=== PATIENT | female | born 1985 | race Two or more races ===

== ENCOUNTER 2022-10-23 16:28 | Inpatient (IN) | payer BC, OTHER ==
[~2022-10-23] VITALS: Ht 180.3 cm; Wt 90.0 kg
[2022-10-23 18:24] LABS: Urine Bacteria FEW /hpf (None Seen); Urine Blood Negative /uL (Negative); Urine Specific Gravity 1.011 (1.001-1.035); Urine WBC 59 /hpf (0 - 5)
[2022-10-23] MEDS ORDERED: cefTRIAXone 1GM/50ML D5W 50 ML IV ONE (19:00)
[2022-10-23] MEDS ORDERED: MORPHINE SULFATE 4 MG/ML SYR/VIAL IV ONE (19:00)
[2022-10-23] MEDS ORDERED: ONDANSETRON HCL 4 MG/2 ML VIAL IV ONE ×2 (19:00→22:30)
[2022-10-23 19:26] LABS: Basophils % (auto) 0.3 % (0.0-2.0); Eosinophils # (auto) 0 10 ^3/uL (0-0.8); Hemoglobin 12.5 g/dL (12.2-16.2); Mean Corpuscular Hgb Conc. 32.5 g/dL (32.0-36.0); Neutrophils % (auto) 82.1 % (37.0-80.0)
[2022-10-23 19:27] LABS: Basophils # (auto) 0.1 10 ^3/uL (0-0.2); Hematocrit 38.5 % (36.0-46.0); Lymphocytes % (auto) 11.1 % (10.0-50.0); Mean Corpuscular Hemoglobin 23.7 pg (28.0-32.0); Mean Corpuscular Volume 73.1 fL (80.0-100.0); Monocytes # (auto) 1.2 10 ^3/uL (0-1.3); Monocytes % (auto) 6.5 % (0.0-12.0); Neutrophils # (auto) 14.9 10 ^3/uL (1.6-8.6); Red Blood Cells 5.27 10^6/uL (4.0-5.20); Red Cell Distribution Width 17.5 % (11.8-14.3); White Blood Cell 18.2 10^3/uL (4.4-10.8)
[2022-10-23 19:39] LABS: Albumin 3.4 g/dL (3.4-5.0); Calcium 8.8 mg/dL (8.5-10.1)
[2022-10-23 19:42] LABS: BUN/Creatinine Ratio 7.9 (10.0-20.0); Bilirubin, Total 0.8 mg/dL (0.2-1.0); Total Protein 7.8 g/dL (6.4-8.2)
[2022-10-23] MEDS ORDERED: SODIUM CHLORIDE 0.9% 1,000 ML IV ONE (20:30)
[2022-10-23] MEDS ORDERED: KETOROLAC TROMETH 30 MG/ML 1ML VIAL IV ONE (21:00)
[2022-10-23] MEDS ORDERED: LIDOCAINE VISCOUS 2% 15ML UD PO ONE (21:30)
[2022-10-23] MEDS ORDERED: MAALOX PLUS or MAALOX 30 ML PO ONE (21:30)
[2022-10-23] MEDS ORDERED: HYDROmorphone HCL 2 MG/ML VL/or syr IV ONE (22:30)
[2022-10-23] MEDS ORDERED: CEFEPIME 1GM/ 50ML 50 ML IV ONE (23:15)
[2022-10-23] MEDS ORDERED: POTASSIUM EFFERVESENT TAB 25 MEQ PO ONE (23:15)
[2022-10-23] MEDS ORDERED: metroNIDAZOLE 500MG/100ML 100 ML IV ONE (23:15)
[2022-10-23 23:28] LABS: Cholesterol 110 mg/dL (< 200)
[2022-10-23] MEDS: SODIUM CHLORIDE 0.9% 1,000 ML IV SCH (23:28)
[2022-10-23 23:31] LABS: HDL Cholesterol 55 mg/dL (40-59); LDL Cholesterol 55 mg/dL (< 100); Triglycerides 54 mg/dL (< 150)
[2022-10-23 23:58] LABS: Alcohol, Urine < 3.0 mg/dL (0-10); Amphetamine Screen, Urine NEGATIVE (NEGATIVE); Barbiturate Scree,Urine NEGATIVE (NEGATIVE); Benzodiazephine Screen, Urine NEGATIVE (NEGATIVE); Cannabinoid Screen, Urine POSITIVE (NEGATIVE); Cocaine Screen, Urine NEGATIVE (NEGATIVE); Opiate Scree,Urine NEGATIVE (NEGATIVE); Phencyclidine Screen, Urine NEGATIVE (NEGATIVE)
[2022-10-24] MEDS: ONDANSETRON HCL 4 MG/2 ML VIAL IV PRN ×3 (02:27→21:28)
[2022-10-24] MEDS: MORPHINE SULFATE INJ 2 MG/ml SYRG IV PRN ×2 (02:27→14:41)
[2022-10-24] MEDS ORDERED: METOCLOPRAMIDE HCL 5MG/ml INJ 2ml VIAL IV ONE (05:45)
[2022-10-24] MEDS ORDERED: metroNIDAZOLE 500MG/100ML 100 ML IV SCH (06:00)
[2022-10-24 06:07] LABS: Basophils # (auto) 0 10 ^3/uL (0-0.2); Eosinophils # (auto) 0 10 ^3/uL (0-0.8); Monocytes # (auto) 1.3 10 ^3/uL (0-1.3)
[2022-10-24 06:09] LABS: Basophils % (auto) 0.1 % (0.0-2.0); Hematocrit 35.7 % (36.0-46.0); Hemoglobin 11.6 g/dL (12.2-16.2); Lymphocytes # (auto) 1.3 10 ^3/uL (0.4-5.4); Lymphocytes % (auto) 7.1 % (10.0-50.0); Mean Corpuscular Hemoglobin 24.4 pg (28.0-32.0); Mean Corpuscular Hgb Conc. 32.5 g/dL (32.0-36.0); Monocytes % (auto) 7.5 % (0.0-12.0); Neutrophils # (auto) 15.1 10 ^3/uL (1.6-8.6); Neutrophils % (auto) 85.3 % (37.0-80.0); Red Blood Cells 4.76 10^6/uL (4.0-5.20); Red Cell Distribution Width 17.9 % (11.8-14.3); White Blood Cell 17.7 10^3/uL (4.4-10.8)
[2022-10-24 06:27] LABS: Albumin 2.8 g/dL (3.4-5.0); Calcium 7.8 mg/dL (8.5-10.1); Potassium 3.8 mmol/L (3.5-5.1)
[2022-10-24 06:29] LABS: BUN/Creatinine Ratio 8.1 (10.0-20.0); Bilirubin, Total 0.5 mg/dL (0.2-1.0); Total Protein 6.9 g/dL (6.4-8.2)
[2022-10-24] MEDS: ACETAMINOPHEN 325 MG TAB PO PRN (08:36)
[2022-10-24] MEDS: SODIUM CHLORIDE 0.9% 1,000 ML IV SCH (08:49)
[2022-10-24] MEDS ORDERED: CEFEPIME 1GM/ 50ML 50 ML IV SCH (10:00)
[2022-10-24] MEDS: ENOXAPARIN SOD 40 MG/0.4 ML SYRINGE SC SCH (10:48)
[2022-10-24] MEDS: HYDROcodone-ACET 5/325MG TAB PO PRN ×3 (13:05→22:18)
[2022-10-24] MEDS: SOD CHL 0.45% 1,000 ML IV SCH (14:13)
[2022-10-24 16:52] VITALS: BP 124/79
[2022-10-24] MEDS: PIPERACILLIN-TAZOB 3.375GM 100 ML IV SCH (18:00)
[2022-10-24 22:00] VITALS: BP 125/75
[2022-10-25 05:00] VITALS: BP 118/68
[2022-10-25 05:24] LABS: Eosinophils # (auto) 0 10 ^3/uL (0-0.8); Monocytes # (auto) 0.8 10 ^3/uL (0-1.3); Monocytes % (auto) 6.8 % (0.0-12.0); Red Blood Cells 4.57 10^6/uL (4.0-5.20); White Blood Cell 11.4 10^3/uL (4.4-10.8)
[2022-10-25 05:26] LABS: Basophils # (auto) 0.1 10 ^3/uL (0-0.2); Basophils % (auto) 0.5 % (0.0-2.0); Eosinophils % (auto) 0.1 % (0.0-7.0); Hematocrit 33.9 % (36.0-46.0); Hemoglobin 10.9 g/dL (12.2-16.2); Lymphocytes # (auto) 1.9 10 ^3/uL (0.4-5.4); Lymphocytes % (auto) 16.4 % (10.0-50.0); Mean Corpuscular Hemoglobin 23.8 pg (28.0-32.0); Mean Corpuscular Volume 74.3 fL (80.0-100.0); Neutrophils # (auto) 8.7 10 ^3/uL (1.6-8.6); Neutrophils % (auto) 76.2 % (37.0-80.0); Red Cell Distribution Width 17.6 % (11.8-14.3)
[2022-10-25] MEDS: PIPERACILLIN-TAZOB 3.375GM 100 ML IV SCH ×4 (05:32→17:44)
[2022-10-25 05:37] LABS: Potassium 3.8 mmol/L (3.5-5.1)
[2022-10-25 05:39] LABS: BUN/Creatinine Ratio 8.5 (10.0-20.0)
[2022-10-25] MEDS: SOD CHL 0.45% 1,000 ML IV SCH ×3 (05:49→17:45)
[2022-10-25 08:10] VITALS: BP 114/75
[2022-10-25] MEDS: ONDANSETRON HCL 4 MG/2 ML VIAL IV PRN (09:05)
[2022-10-25] MEDS: ENOXAPARIN SOD 40 MG/0.4 ML SYRINGE SC SCH (09:05)
[2022-10-25] MEDS: MORPHINE SULFATE INJ 2 MG/ml SYRG IV PRN (09:06)
[2022-10-25 12:10] VITALS: BP 124/70
[2022-10-25] MEDS: ACETAMINOPHEN 325 MG TAB PO PRN (16:10)
[2022-10-25 16:15] VITALS: BP 129/78
[2022-10-25 22:00] VITALS: BP 146/93
[2022-10-26 05:00] VITALS: BP 121/74
[2022-10-26] MEDS: SOD CHL 0.45% 1,000 ML IV SCH (05:22)
[2022-10-26] MEDS: PIPERACILLIN-TAZOB 3.375GM 100 ML IV SCH ×3 (05:42→12:29)
[2022-10-26 06:32] LABS: Basophils # (auto) 0 10 ^3/uL (0-0.2); Basophils % (auto) 0.6 % (0.0-2.0); Eosinophils # (auto) 0 10 ^3/uL (0-0.8); Eosinophils % (auto) 0.3 % (0.0-7.0); Hematocrit 33.1 % (36.0-46.0); Lymphocytes # (auto) 1.3 10 ^3/uL (0.4-5.4); Monocytes # (auto) 0.5 10 ^3/uL (0-1.3); White Blood Cell 7.8 10^3/uL (4.4-10.8)
[2022-10-26 06:35] LABS: Hemoglobin 10.9 g/dL (12.2-16.2); Lymphocytes % (auto) 16.2 % (10.0-50.0); Mean Corpuscular Hemoglobin 24.2 pg (28.0-32.0); Mean Corpuscular Hgb Conc. 33.1 g/dL (32.0-36.0); Neutrophils # (auto) 5.9 10 ^3/uL (1.6-8.6); Neutrophils % (auto) 75.9 % (37.0-80.0); Red Blood Cells 4.53 10^6/uL (4.0-5.20); Red Cell Distribution Width 16.9 % (11.8-14.3)
[2022-10-26 07:05] LABS: BUN/Creatinine Ratio 8.6 (10.0-20.0); Calcium 8.2 mg/dL (8.5-10.1); Potassium 3.5 mmol/L (3.5-5.1)
[2022-10-26] MEDS: ONDANSETRON HCL 4 MG/2 ML VIAL IV PRN ×3 (07:40→22:30)
[2022-10-26 08:49] VITALS: BP 126/91
[2022-10-26] MEDS: ENOXAPARIN SOD 40 MG/0.4 ML SYRINGE SC SCH (09:31)
[2022-10-26 12:59] VITALS: BP 131/90
[2022-10-26] MEDS ORDERED: D5W/SOD CHLO 0.9% 1,000 ML IV SCH (13:00)
[2022-10-26] MEDS ORDERED: cefTRIAXone 1GM/50ML D5W 50 ML IV ONE (13:00)
[2022-10-26] MEDS: SODIUM CHLORIDE 0.9% 1,000 ML IV SCH ×2 (14:15→21:45)
[2022-10-26 17:00] VITALS: BP 151/93
[2022-10-26] MEDS: MORPHINE SULFATE INJ 2 MG/ml SYRG IV PRN (19:03)
[2022-10-26 22:00] VITALS: BP 142/90
[2022-10-26] MEDS: HYDROcodone-ACET 5/325MG TAB PO PRN (22:23)
[2022-10-27] MEDS: MORPHINE SULFATE INJ 2 MG/ml SYRG IV PRN (03:58)
[2022-10-27 05:00] VITALS: BP 136/82
[2022-10-27] MEDS: ONDANSETRON HCL 4 MG/2 ML VIAL IV PRN ×2 (05:13→11:44)
[2022-10-27] MEDS: HYDROcodone-ACET 5/325MG TAB PO PRN (05:13)
[2022-10-27] MEDS: SODIUM CHLORIDE 0.9% 1,000 ML IV SCH (05:13)
[2022-10-27 08:20] VITALS: BP 145/93
[2022-10-27 09:00] VITALS: BP 145/94
[2022-10-27] MEDS ORDERED: cefTRIAXone 1GM/50ML D5W 50 ML IV SCH (09:00)
[2022-10-27] MEDS: ENOXAPARIN SOD 40 MG/0.4 ML SYRINGE SC SCH (09:13)
[2022-10-27] MEDS ORDERED: ONDA-144 PO (12:00)
[2022-10-27 12:30] VITALS: BP 145/98
[2022-10-27 13:00] VITALS: BP 149/98
== END 2022-10-27 13:15 | disposition home or self-care (01) | DRG 871 ==
LOC: ER 16:28 → EDBD 16:28 → OVERFLOW 23:17 → EAST 10-24 14:29
PROVIDERS: ADMIT Registered Nurse; ATTEND Nurse Practitioner Acute Care
DX: A41.9 Sepsis, unspecified organism (principal); N17.0 Acute kidney failure with tubular necrosis; N12 Tubulo-interstitial nephritis, not specified as acute or chronic; Q61.3 Polycystic kidney, unspecified; E66.01 Morbid (severe) obesity due to excess calories; E86.0 Dehydration; Z68.27 Body mass index [BMI] 27.0-27.9, adult; Z20.822 Contact with and (suspected) exposure to COVID-19
CPT/HCPCS: 36415; 74176; 76775; 76830; 76856; 80048; 80053; 80061; 80307; 81001; 81025; 83036; 83605; 83690; 83735; 84443; 85025; 87040; 87086; 87426; 96361; 96365; 96366; 96367; 96375; 96376; G0378; J0696; J1885; J2405; J2543; J3490

== ENCOUNTER 2025-03-26 23:15 | Inpatient (IN) | payer BC ==
[~2025-03-26] VITALS: Ht 180.3 cm; Wt 135.8 kg
[~2025-03-26 23:15] MED LIST: ONDA-144 PO
[2025-03-26] MEDS: KETOROLAC TROMETH 60MG/2ML VIAL IM ONE (23:51)
[2025-03-26 23:59] LABS: Hematocrit 40.7 % (36.0-46.0); Hemoglobin 13.5 g/dL (12.2-16.2); Mean Corpuscular Hemoglobin 26.4 pg (28.0-32.0); Mean Corpuscular Volume 79.4 fL (80.0-100.0); Nucleated Red Blood Cells % 0.0 %
--- NOTE | 2025-03-26 23:59 | ED.PDOC ---
GI ASSESSMENT HPI Comments 39-year-old female who came to ER for abdominal pains. Patient states she has been having intermittent abdominal pain past 2 days, at the lower and left lower quadrant areas. Denies any nausea or vomiting, denies any urinary symptoms, states she is constipated. Chief Complaint: Abdominal Pain Time Seen by MD: 23:59 Reviewed Notes: Nurses Notes Allergies: Coded Allergies: NO KNOWN ALLERGIES (Unverified , 10/23/22) Home Meds Active Scripts Ondansetron (Zofran) 4 Mg Tab, 1 TAB PO Q6HR, #20 TAB Prov:TANESHA BROWN MD 10/27/22 Information Source: Patient Mode of Arrival: Ambulatory Timing: Days Duration: Intermittent Quality: Aching Past Medical History PAST MEDICAL HISTORY: CKF, UTI'S, Denies Surgical History: Denies all surgeries TELERADIOLOGIST History: Denies all TELERADIOLOGIST Hx Family History Family History: Reviewed,noncontributory to illness, No family hx of Cancer, No family hx of DM, No family hx of Heart niru, No family hx of HTN, No family hx ofKidney niru, No family hx of Liver niru, No family hx of Lung niru, No family hx of Stroke Social History Smoker: Non-Smoker Alcohol: Denies ETOH Use Drugs: Denies Drug Use Lives In: Home Constitutional: denies: chills, diaphoresis, fatigue, fever, malaise, sweats, weakness, others EENTM: denies: blurred vision, double vision, ear bleeding, ear discharge, ear drainage, ear pain, ear ringing, eye pain, eye redness, hearing loss, mouth pain, mouth swelling, nasal discharge, nose bleeding, nose congestion, nose pain, photophobia, tearing, throat pain, throat swelling, voice changes, others Respiratory: denies: cough, hemoptysis, orthopnea, SOB at rest, shortness of breath, SOB with excertion, stridor, wheezing, others Cardiovascular: denies: chest pain, dizzy spells, diaphoresis, Dyspnea on exertion, edema, irregular heart beat, left arm pain, lightheadedness, palpitations, PND, syncope, others Gastrointestinal: reports: abdominal pain, constipated; denies: abdomen distended, blood streaked bowels, diarrhea, dysphagia, difficulty swallowing, hematemesis, melena, nausea, poor appetite, poor fluid intake, rectal bleeding, rectal pain, vomiting, others Genitourinary: denies: abnormal vagina bleeding, burning, dyspareunia, dysuria, flank pain, frequency, hematuria, incontinence, pain, , vagina discharge, urgency, others Neurological: denies: dizziness, fainting, headache, left sided numbness, left sided weakness, numbness, paresthesia, pre-existing deficit, right sided numbness, right sided weakness, seizure, speech problems, tingling, tremors, weakness, others Musculoskeletal: denies: back pain, gout, joint pain, joint swelling, muscle pain, muscle stiffness, neck pain, others Integumetry: denies: bruises, change in color, change in hair/nails, dryness, laceration, lesions, lumps, rash, wounds, others Allergic/Immunocompromised: denies: Difficulty Healing, Frequent Infections, Hives, Itching, others Hematologic/Lymphatic: denies: anemia, blood clots, easy bleeding, easy bruising, swollen glands, others Endocrine: denies: excessive hunger, excessive sweating, excessive thirst, excessive urination, flushing, intolerance to cold, intolerance to heat, unexplained weight gain, unexplained weight loss, others Psychiatric: denies: anxiety, bipolar disorder, depression, hopeless, panic disorder, schizophrenia, sleepless, suicidal, others Physical Exam General Appearance: No Apparent Distress, Normal HEENT: Normal ENT Inspection, Pharynx Normal, TMs Normal Neck: Full Range of Motion, Non-Tender, Normal, Normal Inspection Respiratory: Chest Non-Tender, Lungs Clear, No Accessory Muscle Use, No Respiratory Distress, Normal Breath Sounds Cardiovascular: No Edema, No JVD, No Murmur, No Gallop, Normal Peripheral Pulses, Regular Rate/Rhythm Breast Exam: Deferred Gastrointestinal: No Organomegaly, Non Tender, No Pulsatile Mass, Normal Bowel Sounds, Soft Genitalia: Deferred Pelvic: Deferred Rectal: Deferred Extremities: No calf tenderness, Normal capillary refill, Normal inspection, Normal range of motion, Non-tender, No pedal edema Musculoskeletal : Apperance: Normal Neurologic: Alert, strip stamp straightener II-XII nml as Tested, No Motor Deficits, Normal Affect, Normal Mood, No Sensory Deficits Cerebellar Function: Normal Reflexes: Normal Skin: Dry, Normal Color, Warm Lymphatic: No Adenopathy Was a procedure done? Was a procedure done?: No GI differential Dx Differential Diagnosis: Constipation, Diverticular disease, Gastritis/PUD, Gastroenteritis, Pancreatitis, UTI, Urolithiasis X-Ray, Labs, Meds, VS Vital Signs Date Time Temp Pulse Resp B/P (MAP) Pulse Ox O2 Delivery O2 Flow Rate FiO2 03/26/25 23:17 100.1 121 20 153/117 93 100.1 Lab Test 03/27/25 01:45 03/26/25 23:33 Range/Units Urine Color Pending Urine Clarity Pending Urine pH Pending Urine Specific [place] Pending Urine Protein Pending Urine Ketones Pending Urine Blood Pending Urine Nitrite Pending Urine Bilirubin Pending Urine Urobilinogen Pending Urine Leukocyte Esterase Pending Urine RBC Pending Urine Microscopic WBC Pending Urine Squamous Epithelial Cells Pending Urine Bacteria Pending Urine Glucose Pending Urine Test Pending White Blood Count 18.6 H 4.4-10.8 10^3/uL Red Blood Count 5.13 4.0-5.20 10^6/uL Hemoglobin 13.5 12.2-16.2 g/dL Hematocrit 40.7 36.0-46.0 % Mean Corpuscular Volume 79.4 L 80.0-100.0 fL Mean Corpuscular Hemoglobin 26.4 L 28.0-32.0 pg Mean Corpuscular Hemoglobin Concent 33.3 32.0-36.0 g/dL Red Cell Distribution Width 14.9 H 11.8-14.3 % Platelet Count 254 140-450 10^3/uL Mean Platelet Volume 9.2 6.9-10.8 fL Neutrophils (%) (Auto) 82.8 H 37.0-80.0 % Lymphocytes (%) (Auto) 9.3 L 10.0-50.0 % Monocytes (%) (Auto) 7.5 0.0-12.0 % Eosinophils (%) (Auto) 0.0 0.0-7.0 % Basophils (%) (Auto) 0.4 0.0-2.0 % Neutrophils # (Auto) 15.4 H 1.6-8.6 10 ^3/uL Lymphocytes # (Auto) 1.7 0.4-5.4 10 ^3/uL Monocytes # (Auto) 1.4 H 0-1.3 10 ^3/uL Eosinophils # (Auto) 0 0-0.8 10 ^3/uL Basophils # (Auto) 0.1 0-0.2 10 ^3/uL Nucleated Red Blood Cells 0.0 % Sodium Level 139 136-145 mmol/L Potassium Level 3.2 L 3.5-5.1 mmol/L Chloride Level 103 98-107 mmol/L Carbon Dioxide Level 25 20-31 mmol/L Anion Gap 11 5-15 Blood Urea Nitrogen 14 9-23 mg/dL Creatinine 2.30 H 0.550-1.02 mg/dL Glomerular Filtration Rate Calc 27 >90 mL/min BUN/Creatinine Ratio 6.1 L 10.0-20.0 Serum Glucose 119 H 74-106 mg/dL Calcium Level 9.1 8.7-10.4 mg/dL Current Medications Medications (Trade) Dose Ordered Sig/Clarissa Route Start Time Stop Time Status Last Admin Ketorolac Tromethamine (Toradol Injection) 60 mg ONCE ONCE IM 03/26/25 23:30 03/26/25 23:31 DC 03/26/25 23:51 Time of 1ST Reevaluation: 23:57 Reevaluation 1ST: Unchanged Patient Education/Counseling: Diagnosis, Treatment Family Education/Counseling: Diagnosis, Treatment Comments Patient presents with flank pain. She has pyelonephritis. She also meets sepsis criteria. The WBC came back at after 07 03. Sepsis was recognized after this and sepsis order was initiated. SEPSIS Sepsis Screen Date sepsis recognized/suspect: Mar 26, 2025 Time Sepsis recognized/suspect: 2321 Recent Procedure: No On Antibiotic Therapy: No Respiratory Rate >20: No Heart Rate >90: No Temp<36 C (96.8 F) or >38.3 C: No SBP <90 or MAP <65 mmHG: No New Acute Mental Status Change: No Is the patient on CPAP, BIPAP,: No Physician Orders Ct Ab Pel Wo Con-No Oral Or Iv (03/26/25 23:51) Test, Urine (03/26/25 23:51) Urinalysis (03/26/25 23:51) Complete Blood Count (03/27/25 02:13) Comprehensive Metabolic Panel (03/27/25 02:13) PTPTT (03/27/25 02:13) Urinalysis (03/27/25 02:13) Chest Portable (03/27/25 02:13) Accucheck (03/27/25 02:13) Lactated Ringer's (03/27/25 02:15) Blood Culture (03/27/25 02:13) Lactic Acid W/ Reflex Order (03/27/25 04:00) Lactic Acid W/ Reflex Order (03/27/25 06:00) Cefepime 1gm/ 50ml (Maxipime 1gm/50ml) (03/27/25 06:00) Notify Md If Map <65 Or Bp<90 (03/27/25 02:13) If Map<65 Start Vasopressor (03/27/25 02:13) Sepsis Reassesment After Fluid (03/27/25 03:13) Vital Signs Date Time Temp Pulse Resp B/P (MAP) Pulse Ox O2 Delivery O2 Flow Rate FiO2 03/26/25 23:17 100.1 121 20 153/117 93 100.1 Laboratory Tests Test 03/26/25 23:33 White Blood Count 18.6 10^3/uL (4.4-10.8) H Medications Medications Dose Ordered Sig/Clarissa Route Start Time Stop Time Status Last Admin Dose Admin Ketorolac Tromethamine 60 mg ONCE ONCE IM 03/26/25 23:30 03/26/25 23:31 DC 03/26/25 23:51 Reassessment Post Fluid SEPSIS FOCUS EXAM(REASSESSMENT pt appears in no distress. resting comfortably Date of Reassessment: Mar 27, 2025 Time of Reassessment: 02:18 Departure 1 Departure Time of Disposition: 02:21 Impression: Primary Impression: Pyelonephritis Additional Impressions: Renal failure Qualified Codes: N19 - Unspecified kidney failure Sepsis Disposition: ADMITTED INPATIENT Admit to: Med Surg Condition: Serious Discharged With: Self Critical Care Note Critical Care Time?: Yes (55 min-critical care time only) Critical care comment: Due to concerns for patients condition deteriorating, the care required my highest level of attention and readiness to intervene. I assessed the patient, reviewed the medical records, ordered the appropriate tests and treatments, then reassessed for results and responsiveness. I communicated with medical personnel and consultants and formulated a plan of care. Total critical care time excludes any procedures Stability Stability form required: No Heart Score Heart Score: Heart Score Response (Comments) Value History N/A 0 EKG N/A 0 Age N/A 0 Risk Factors N/A 0 Troponin N/A 0 Total 0 I personally scribed for MIKALA PRATT MD ([facility]) on 03/26/25 at 23:59. Electronically submitted by Mahesh Carrillo ([facility]). MIKALA PRATT MD Mar 26, 2025 23:59
[2025-03-27 00:09] LABS: Chloride 103 mmol/L (98-107); Sodium 139 mmol/L (136-145)
[2025-03-27 00:10] LABS: Anion Gap 11 (5-15); Calcium 9.1 mg/dL (8.7-10.4); Carbon Dioxide 25 mmol/L (20-31)
[2025-03-27 00:15] LABS: BUN/Creatinine Ratio 6.1 (10.0-20.0); Blood Urea Nitrogen 14 mg/dL (9-23)
[2025-03-27 00:16] LABS: Glucose 119 mg/dL (74-106); Potassium 3.2 mmol/L (3.5-5.1)
--- NOTE | 2025-03-27 01:51 | DVH ---
Exam: CT CT AB PEL WO CON-NO ORAL OR IV History: llq pain Comparison Study: US PELVIC on DOS: 10/24/22, CT CT AB PEL WO CON-NO ORAL OR IV on DOS: 10/23/22 TECHNIQUE: Multidetector CT of the abdomen and pelvis was performed from lung bases to pubic symphysi s. Imaging was performed without IV contrast. Axial, coronal, and sagittal multiplanar reformats were obtained from the axial data set by the technologist. RADIATION DOSE: CTDI vol 24.99 mGy. DLP 1674.64 mGy.cm Findings: Limited evaluation of the solid organs in the absence of IV contrast. Liver: Scattered hepatic cysts. Spleen: Unremarkable. Pancreas: Unremarkable. Gallbladder: Unremarkable. Adrenals: Unremarkable Kidneys: Enlarged kidneys with innumerable renal cysts, several which demonstrate hyperdensity. Ther e is left perinephric stranding. Pelvic Viscera: An intrauterine device is noted. Vasculature: Unremarkable. Retroperitoneum: Mildly enlarged retroperitoneal nodes measuring up to 12 mm short axis. Bowel: No bowel obstruction. Musculoskeletal: Unremarkable. Soft tissues: Small fat containing umbilical hernia. Lungs: The lung bases are clear. Impression: 1. Polycystic kidney disease with perinephric stranding about the left kidney, infectious/ inflammato ry process or blood products cannot be excluded. Further clinical correlation is suggested. 2. Additional findings as detailed.
[2025-03-27 02:26] LABS: Urine Protein, UAD 2+ (Negative)
--- NOTE | 2025-03-27 03:03 | DVH ---
CHEST RADIOGRAPH Indication: sepsis Technique: 1 view Comparison: None FINDINGS: Lines and Tubes: None Lungs: No focal consolidation. Pleura: No effusion or pneumothorax. Cardiomediastinal contours: Unremarkable. Other: No acute osseous abnormality. IMPRESSION: 1. No acute cardiopulmonary abnormality.
[2025-03-27] MEDS ORDERED: ACETAMINOPHEN 325 MG TAB PO PRN (03:15)
[2025-03-27] MEDS ORDERED: VANCOMYCIN PER PHARMACY 0 MG IV SCH (03:15)
[2025-03-27] MEDS ORDERED: DOCUSATE SOD 100 MG CAP PO PRN (03:15)
[2025-03-27 03:20] LABS: INR 1.14 (0.9-1.15); Partial Thromboplastin Time 35.4 SEC (24.5-34.5); Prothrombin Time 11.9 sec (9.3-11.8)
[2025-03-27] MEDS: POTASSIUM CHL 20 Meq TABLET PO ONE (04:37)
[2025-03-27] MEDS: VANCOMYCIN 1GM/250ML KIT 250 ML IV SCH (04:47)
[2025-03-27] MEDS: LACTATED RINGER'S 2,100 ML IV ONE (05:18)
[2025-03-27] MEDS: HYDROcodone-ACET 5/325MG TAB PO PRN (05:22)
--- NOTE | 2025-03-27 05:58 | DVHHP2 ---
History of Present Illness Reason for Visit: Pyelonephritis History of Present Illness The patient is a 39-year-old female with past medical history of chronic kidney failure and UTIs who presented to [facility] ED with complaint of abdominal pain. Patient reports she has been experiencing intermittent abdominal pain for the past 2 days, described pain as sharp in nature, radiating to left lower quadrant, rating 8/10 numeric scale, getting worse that prompted this visit. Patient was seen and evaluated in the ED, laboratory data shows WBC 18.6, platelets 254, sodium 139, potassium 3.2, BUN 14, creatinine 2.30, GFR 27, glucose 119, calcium 9.1, urinalysis positive for urinary tract infection, blood pressure 139/91, heart rate 90, temperature 97.6 F, O2 saturation 98% on room air. Abdomen/pelvis CT revealing polycystic kidney disease with perinephric stranding about the left kidney, infectious/inflammatory process blood product can not be excluded. Patient was started on IV antibiotic regimen cefepime, please see medication orders section in the computer. On my assessment, patient denied chest pain, no headache, no dizziness, no shortness of breaths, no diarrhea, no nausea, no vomiting, no fever, no chills. Patient was admitted for further evaluation and medical management. Past Medical History CKF, UTI'S Past Surgical History Denies all surgeries Family History Reviewed, noncontributory to the management of this case. Past Social History The patient lives at home, denies smoking, alcohol or illicit drugs abuse. Review of Systems Constitutional: Yes: Weakness; No: Fever, Chills, Sweats, Malaise, Other Eyes: No: Pain, Vision change, Conjunctivae inflammation, Eyelid inflammation, Other, Redness ENT: No: Ear pain, Ear discharge, Nose pain, Nose discharge, Nose congestion, Mouth pain, Mouth swelling, Throat pain, Throat swelling, Other Respiratory: No: Cough, Dry, Shortness of breath, SOB with excertion, Wheezing, Hemoptysis, Pleuritic Pain, Sputum, Wheezing, Other Cardiovascular: No: Chest Pain, Palpitations, Orthopnea, Paroxysmal Noc. Dyspnea, Edema, Lt Headedness, Other Gastrointestinal: Abdominal Pain, Constipation; No: Nausea, Vomiting, Diarrhea, Melena, Hematochezia, Other Genitourinary: No Dysuria, No Frequency, No Incontinence, No Hematuria, No Retention, No Other Musculoskeletal: No: other, neck pain, shoulder pain, arm pain, back pain, hand pain, leg pain, foot pain Skin: No: Rash, Lesions, Jaundice, Bruising, Other Neurological: No: Weakness, Numbness, Incoordination, Change in speech, Confusion, Seizures, Other Allergies: Coded Allergies: NO KNOWN ALLERGIES (Unverified , 10/23/22) Medications Current Medications Medications Dose Ordered Sig/Clarissa Route Start Time Stop Time Status Last Admin Dose Admin Cefepime HCl 50 ml @ 12.5 mls/hr Q8HR IV 03/27/25 06:00 Famotidine 20 mg Q12HR IV 03/27/25 10:00 Vancomycin HCl 0 ml @ 0 mls/hr UD IV 03/27/25 03:15 UNV Sodium Chloride 1,000 ml @ 60 mls/hr [id number] IV 03/27/25 03:15 Acetaminophen/ Hydrocodone Bitart 1 tab Q4HP PRN PO 03/27/25 03:15 03/27/25 05:22 1 TAB Ondansetron HCl 4 mg Q4HP PRN IV 03/27/25 03:15 Docusate Sodium 100 mg BIDPRN PRN PO 03/27/25 03:15 Acetaminophen 650 mg Q6HP PRN PO 03/27/25 03:15 Vancomycin HCl 250 ml @ 166.667 mls/hr Q2H IV 03/27/25 03:30 03/27/25 06:59 Exam Vital Signs Vital Signs Date Time Temp Pulse Resp B/P (MAP) Pulse Ox O2 Delivery O2 Flow Rate FiO2 03/27/25 03:05 97.7 90 20 139/91 (107) 98 97.7 General Appearance: Alert, Oriented X3, Cooperative, No acute distress HEENT: Atraumatic, PERRLA, EOMI, Mucous membr. moist/pink Respiratory: Clear to auscultation, Normal air movement Cardiovascular: Regular rate, Normal S1, Normal S2, No murmurs Abdominal: Normal bowel sounds, Soft, No tenderness, No hepatospenomegaly, No masses Extremities: No clubbing, No cyanosis, No edema, Normal pulses, No tenderness/swelling Skin: No rashes, No breakdown, No significant lesion Neuro: Normal speech, Normal tone, Sensation intact, Cranial nerves 3-12 NL, Reflexes 2+, Other (Generalized weakness) Psych/Mental Status: Mental status NL, Mood NL Labs/Xrays Labs Test 03/27/25 02:31 03/27/25 01:45 03/26/25 23:33 Range/Units Prothrombin Time 11.9 H 9.3-11.8 sec Prothrombin Time INR 1.14 0.9-1.15 Activated Partial Thromboplast Time 35.4 H 24.5-34.5 SEC Lactic Acid Level 0.9 0.4-2.0 mmol/L Urine Color Colorless Yellow Urine Clarity Turbid H Clear Urine pH 6.0 5.0-9.0 Urine Specific [place] 1.014 1.001-1.035 Urine Protein 2+ H Negative Urine Ketones Negative Negative Urine Blood 1+ H Negative /uL Urine Nitrite Negative Negative Urine Bilirubin Negative Negative Urine Urobilinogen Normal Negative mg/dL Urine Leukocyte Esterase 3+ Negative /uL Urine RBC 4 0 - 4 /hpf Urine Microscopic WBC 162 H 0-5 /HPF Urine Squamous Epithelial Cells Few <5 /hpf Urine Bacteria Few H None Seen /hpf Urine Glucose Normal Normal mg/dL Urine Test Negative Negative White Blood Count 18.6 H 4.4-10.8 10^3/uL Red Blood Count 5.13 4.0-5.20 10^6/uL Hemoglobin 13.5 12.2-16.2 g/dL Hematocrit 40.7 36.0-46.0 % Mean Corpuscular Volume 79.4 L 80.0-100.0 fL Mean Corpuscular Hemoglobin 26.4 L 28.0-32.0 pg Mean Corpuscular Hemoglobin Concent 33.3 32.0-36.0 g/dL Red Cell Distribution Width 14.9 H 11.8-14.3 % Platelet Count 254 140-450 10^3/uL Mean Platelet Volume 9.2 6.9-10.8 fL Neutrophils (%) (Auto) 82.8 H 37.0-80.0 % Lymphocytes (%) (Auto) 9.3 L 10.0-50.0 % Monocytes (%) (Auto) 7.5 0.0-12.0 % Eosinophils (%) (Auto) 0.0 0.0-7.0 % Basophils (%) (Auto) 0.4 0.0-2.0 % Neutrophils # (Auto) 15.4 H 1.6-8.6 10 ^3/uL Lymphocytes # (Auto) 1.7 0.4-5.4 10 ^3/uL Monocytes # (Auto) 1.4 H 0-1.3 10 ^3/uL Eosinophils # (Auto) 0 0-0.8 10 ^3/uL Basophils # (Auto) 0.1 0-0.2 10 ^3/uL Nucleated Red Blood Cells 0.0 % Sodium Level 139 136-145 mmol/L Potassium Level 3.2 L 3.5-5.1 mmol/L Chloride Level 103 98-107 mmol/L Carbon Dioxide Level 25 20-31 mmol/L Anion Gap 11 5-15 Blood Urea Nitrogen 14 9-23 mg/dL Creatinine 2.30 H 0.550-1.02 mg/dL Glomerular Filtration Rate Calc 27 >90 mL/min BUN/Creatinine Ratio 6.1 L 10.0-20.0 Serum Glucose 119 H 74-106 mg/dL Calcium Level 9.1 8.7-10.4 mg/dL PATIENT: KLEVER LEARY ACCT: [id number] UNIT: [id number] : 1985 LOC: ER ROOM / BED: / AGE / SEX: 39 / F ADM STATUS: REG ER SERVICE 7250 ORDERING PHYSICIAN: MIKALA PRATT MD PROCEDURE(s): ABPL - CT AB PEL WO CON-NO ORAL OR IV REASON: llq pain ORDER NUMBER(s): [id number], ACCESSION NUMBER(s): [id number] Exam: CT CT AB PEL WO CON-NO ORAL OR IV History: llq pain Comparison Study: US PELVIC on DOS: 10/24/22, CT CT AB PEL WO CON-NO ORAL OR IV on DOS: 10/23/22 TECHNIQUE: Multidetector CT of the abdomen and pelvis was performed from lung bases to pubic symphysis. Imaging was performed without IV contrast. Axial, coronal, and sagittal multiplanar reformats were obtained from the axial data set by the technologist. RADIATION DOSE: CTDI vol 24.99 mGy. DLP 1674.64 mGy.cm Findings: Limited evaluation of the solid organs in the absence of IV contrast. Liver: Scattered hepatic cysts. Spleen: Unremarkable. Pancreas: Unremarkable. Gallbladder: Unremarkable. Adrenals: Unremarkable Kidneys: Enlarged kidneys with innumerable renal cysts, several which demonstrate hyperdensity. There is left perinephric stranding. Pelvic Viscera: An intrauterine device is noted. Vasculature: Unremarkable. Retroperitoneum: Mildly enlarged retroperitoneal nodes measuring up to 12 mm short axis. Bowel: No bowel obstruction. Musculoskeletal: Unremarkable. Soft tissues: Small fat containing umbilical hernia. Lungs: The lung bases are clear. Impression: 1. Polycystic kidney disease with perinephric stranding about the left kidney, infectious/inflammatory process or blood products cannot be excluded. Further clinical correlation is suggested. 2. Additional findings as detailed. ORDERING PHYSICIAN: MIKALA PRATT MD PROCEDURE(s): CXRP - CHEST PORTABLE REASON: sepsis ORDER NUMBER(s): [id number], ACCESSION NUMBER(s): [id number] CHEST RADIOGRAPH Indication: sepsis Technique: 1 view Comparison: None FINDINGS: Lines and Tubes: None Lungs: No focal consolidation. Pleura: No effusion or pneumothorax. Cardiomediastinal contours: Unremarkable. Other: No acute osseous abnormality. IMPRESSION: 1. No acute cardiopulmonary abnormality. SEPSIS Sepsis Screen Date sepsis recognized/suspect: Mar 26, 2025 Time Sepsis recognized/suspect: 2321 Recent Procedure: No On Antibiotic Therapy: No Respiratory Rate >20: No Heart Rate >90: No Temp<36 C (96.8 F) or >38.3 C: No SBP <90 or MAP <65 mmHG: No New Acute Mental Status Change: No Is the patient on CPAP, BIPAP,: No Physician Orders Ct Ab Pel Wo Con-No Oral Or Iv (03/26/25 23:51) Urinalysis (03/27/25 02:13) Chest Portable (03/27/25 02:13) Accucheck (03/27/25 02:13) Blood Culture (03/27/25 02:13) Cefepime 1gm/ 50ml (Maxipime 1gm/50ml) (03/27/25 06:00) Notify Md If Map <65 Or Bp<90 (03/27/25 02:13) If Map<65 Start Vasopressor (03/27/25 02:13) Sepsis Reassesment After Fluid (03/27/25 03:13) Famotidine Injection (Pepcid Injection) (03/27/25 10:00) *Dr. Natalia Banegas -Da Trish (03/27/25 03:15) Urine Bacterial Culture (03/27/25 03:15) Vancomycin Per Pharmacy (03/27/25 03:15) Allergies (03/27/25 03:15) Code Status (03/27/25 03:15) Sodium Chloride 0.9% (03/27/25 03:15) Oxygen Per Hour (03/27/25 03:15) Hydrocodone-Acet 5/325mg Tab ([place] 5/32 (03/27/25 03:15) Ondansetron Hcl (Zofran) (03/27/25 03:15) Docusate Sodium Capsule (Colace Capsule) (03/27/25 03:15) Complete Blood Count (03/28/25 04:00) Comprehensive Metabolic Panel (03/28/25 04:00) Condition: Serious (03/27/25 03:15) Acetaminophen Tablet (Tylenol Tablet) (03/27/25 03:15) Clear Liq Diet (03/27/25 Breakfast) Bedrest With Bathroom Privileg (03/27/25 03:15) Sequential Compression Device (03/27/25 ) Vancomycin 1gm/250ml Kit (03/27/25 03:30) Vital Signs Date Time Temp Pulse Resp B/P (MAP) Pulse Ox O2 Delivery O2 Flow Rate FiO2 03/27/25 03:05 97.7 90 20 139/91 (107) 98 97.7 03/26/25 23:17 100.1 121 20 153/117 93 100.1 Laboratory Tests Test 03/26/25 23:33 03/27/25 02:31 White Blood Count 18.6 10^3/uL (4.4-10.8) H Lactic Acid Level 0.9 mmol/L (0.4-2.0) Medications Medications Dose Ordered Sig/Clarissa Route Start Time Stop Time Status Last Admin Dose Admin Acetaminophen/ Hydrocodone Bitart 1 tab Q4HP PRN PO 03/27/25 03:15 03/27/25 05:22 1 TAB Ketorolac Tromethamine 60 mg ONCE ONCE IM 03/26/25 23:30 03/26/25 23:31 DC 03/26/25 23:51 60 MG Lactated Ringer's 2,100 ml @ 2,100 mls/hr ONCE ONCE IV 03/27/25 02:15 03/27/25 03:14 DC 03/27/25 05:18 2,100 MLS/HR Potassium Chloride 40 meq ONCE ONCE PO 03/27/25 03:15 03/27/25 03:27 DC 03/27/25 04:37 40 MEQ Reassessment Post Fluid Date of Reassessment: Mar 27, 2025 Time of Reassessment: 02:18 Assessment/Plan Assessment/Plan Pyelonephritis Acute renal failure Unspecified kidney failure Urinary tract infection Leukocytosis, unspecified Generalized weakness Plan 1. Admit to telemetry unit 2. Breathing treatment 3. Pain control management 4. IV antibiotic management 5. Management of fluids and electrolytes 6. Consultation for Nephrology 7. Diagnostic test abdomen/pelvis CT 8. DVT prophylaxis-on SCDs 9. Repeat labs CBC, CMP in a.m. 10. Home medication reviewed and reconciled 11. Continue with current medical management 12. Treatment plan discussed with patient and RN. Patient verbalized understanding. Plan discussed with: Patient, Other (RN) My Orders Orders - TIMBO SELF DNP Procedure Category Date Status Time Famotidine Injection PHA 03/27/25 In Process (Pepcid Injection) 10:00 *Dr. Natalia Banegas -Da CONS 03/27/25 Transmitted Trish 03:15 Urine Bacterial TANGELA 03/27/25 Logged Culture 03:15 Vancomycin Per PHA 03/27/25 Pending Pharmacy 03:15 Allergies ROCKY 03/27/25 In Process 03:15 Code Status CODE 03/27/25 Transmitted 03:15 Sodium Chloride 0.9% PHA 03/27/25 In Process 03:15 Oxygen Per Hour RT 03/27/25 Transmitted 03:15 Hydrocodone-Acet PHA 03/27/25 In Process 5/325mg Tab ([place] 03:15 Ondansetron Hcl PHA 03/27/25 In Process (Zofran) 03:15 Docusate Sodium PHA 03/27/25 In Process Capsule (Colace 03:15 Complete Blood Count LAB 03/28/25 Verified 04:00 Comprehensive LAB 03/28/25 Verified Metabolic Panel 04:00 Condition: Serious ROCKY 03/27/25 In Process 03:15 Acetaminophen Tablet PHA 03/27/25 In Process (Tylenol Tablet) 03:15 Clear Liq Diet DIET 03/27/25 Transmitted Breakfast Bedrest With Bathroom ROCKY 03/27/25 In Process Privileg 03:15 Sequential ROCKY 03/27/25 In Process Compression Device Vancomycin 1gm/250ml PHA 03/27/25 In Process Kit 03:30 Problem List: (1) Pyelonephritis (2) Acute renal failure (3) Unspecified kidney failure (4) Urinary tract infection (5) Leukocytosis, unspecified (6) Generalized weakness Date of Service: Mar 27, 2025 Billing Provider: TIMBO SELF DNP Common Visit Codes: [id number] INP/OBS CARE (HIGH) TIMBO SELF DNP Mar 27, 2025 05:58
[2025-03-27] MEDS ORDERED: NITROGLYCERIN 0.4 MG SL TAB SL PRN (06:00)
[2025-03-27] MEDS: SODIUM CHLORIDE 0.9% 1,000 ML IV SCH (08:03)
[2025-03-27 08:08] VITALS: RESP 18; O2SAT 98
[2025-03-27] MEDS: ONDANSETRON HCL 4 MG/2 ML VIAL IV PRN (08:22)
[2025-03-27] MEDS: MORPHINE SULFATE INJ 2 MG/ml SYRG IV PRN ×3 (08:22→17:48)
[2025-03-27] MEDS: FAMOTIDINE (10MG/ML) 2ML VL IV SCH (10:11)
[2025-03-27] MEDS: CEFEPIME 1GM/ 50ML 50 ML IV SCH (10:39)
--- NOTE | 2025-03-27 13:20 | DVHINCON2 ---
Date of service: Mar 27, 2025 Referring Physician Xavier Guerrero Reason for Consultation CARLOS History of Present Illness 39 Y/O F with history of ADPKD, CKD IIIa presented with chief complaint of abdominal pain. In ER she has a mild fever, and has tachycardia. UA is positive for LE. creatinine is 2.3 mg/dl. baseline Cr in 2022 was 1.2 - 1.3 mg/dl. WBC is 18. She is admitted for UTI, and was started on IV antibiotics and IV fluid. (Renal ultrasound frrom over 2 years ago on 10/24/22: Rt kidney: 15.7 cm, Lt kidney: 17.8 cm. Impression polycystic kidney disease) Her father, and siblings have ADPKD. She states she was diagnosed with ADPKD when she was 18 years old, but has never seen a Shirt Presser, and has never been treated for it. Nephrology consulted for CARLOS. Past Medical History polycystic kidney disease CKD Allergies: Coded Allergies: NO KNOWN ALLERGIES (Unverified , 10/23/22) Home Meds Active Scripts Ondansetron (Zofran) 4 Mg Tab, 1 TAB PO Q6HR, #20 TAB Prov:TANESHA BROWN MD 10/27/22 Current Medications Current Medications Medications (Trade) Dose Ordered Sig/Clarissa Route PRN Reason Start Time Stop Time Status Last Admin Cefepime HCl 50 ml @ 12.5 mls/hr Q8HR IV 03/27/25 06:00 03/27/25 10:39 Famotidine (Pepcid Injection) 20 mg Q12HR IV 03/27/25 10:00 03/27/25 10:11 Vancomycin HCl 0 ml @ 0 mls/hr UD IV 03/27/25 03:15 UNV Sodium Chloride 1,000 ml @ 60 mls/hr [id number] IV 03/27/25 03:15 Acetaminophen/ Hydrocodone Bitart ([place] 5/325MG Tab) 1 tab Q4HP PRN PO MODERATE PAIN (4-6 PAIN SCALE) 03/27/25 03:15 03/27/25 05:22 Ondansetron HCl (Zofran) 4 mg Q4HP PRN IV NAUSEA / VOMITING 03/27/25 03:15 03/27/25 08:22 Docusate Sodium (Colace Capsule) 100 mg BIDPRN PRN PO FOR CONSTIPATION 03/27/25 03:15 Acetaminophen (Tylenol Tablet) 650 mg Q6HP PRN PO PAIN SCALE 1-3 OR TEMP>100.4 03/27/25 03:15 Vancomycin HCl 250 ml @ 166.667 mls/hr Q2H IV 03/27/25 03:30 03/27/25 06:59 DC 03/27/25 08:22 Nitroglycerin (Ntrostat Sublingual) 0.4 mg Q5MINP PRN SL FOR CHEST PAIN 03/27/25 06:00 Morphine Sulfate 2 mg Q30M PRN IV FOR CHEST PAIN 03/27/25 06:00 03/27/25 08:22 Morphine Sulfate 2 mg Q6HPRN PRN IV SEVERE PAIN (7-10 PAIN SCALE) 03/27/25 06:00 Family History Her father and siblings have ADPKD Review of Systems as per HPI, all other systems were reviewed and are negative H&P Exam Vital Signs/I&O Vital Sign Date Time Temp Pulse Resp B/P (MAP) Pulse Ox O2 Delivery O2 Flow Rate FiO2 03/27/25 12:48 98.3 61 18 119/80 (93) 98 98.3 03/27/25 08:08 Room Air* 0 21 Physical Exam Gen: NAD, AAOx3 HEENT: NC,AT Lungs: CTA b/l Cardiac: RRR, no murmur Abd: soft, no tenderness Ext: no edema Neuro: no focal deficits Labs/Diagnostic Data Labs/Diagnostic Data Laboratory Tests Test 03/27/25 02:31 03/27/25 01:45 03/26/25 23:33 Range/Units Prothrombin Time 11.9 H 9.3-11.8 sec Prothrombin Time INR 1.14 0.9-1.15 Activated Partial Thromboplast Time 35.4 H 24.5-34.5 SEC Lactic Acid Level 0.9 0.4-2.0 mmol/L Urine Color Colorless Yellow Urine Clarity Turbid H Clear Urine pH 6.0 5.0-9.0 Urine Specific [place] 1.014 1.001-1.035 Urine Protein 2+ H Negative Urine Ketones Negative Negative Urine Blood 1+ H Negative /uL Urine Nitrite Negative Negative Urine Bilirubin Negative Negative Urine Urobilinogen Normal Negative mg/dL Urine Leukocyte Esterase 3+ Negative /uL Urine RBC 4 0 - 4 /hpf Urine Microscopic WBC 162 H 0-5 /HPF Urine Squamous Epithelial Cells Few <5 /hpf Urine Bacteria Few H None Seen /hpf Urine Glucose Normal Normal mg/dL Urine Test Negative Negative White Blood Count 18.6 H 4.4-10.8 10^3/uL Red Blood Count 5.13 4.0-5.20 10^6/uL Hemoglobin 13.5 12.2-16.2 g/dL Hematocrit 40.7 36.0-46.0 % Mean Corpuscular Volume 79.4 L 80.0-100.0 fL Mean Corpuscular Hemoglobin 26.4 L 28.0-32.0 pg Mean Corpuscular Hemoglobin Concent 33.3 32.0-36.0 g/dL Red Cell Distribution Width 14.9 H 11.8-14.3 % Platelet Count 254 140-450 10^3/uL Mean Platelet Volume 9.2 6.9-10.8 fL Neutrophils (%) (Auto) 82.8 H 37.0-80.0 % Lymphocytes (%) (Auto) 9.3 L 10.0-50.0 % Monocytes (%) (Auto) 7.5 0.0-12.0 % Eosinophils (%) (Auto) 0.0 0.0-7.0 % Basophils (%) (Auto) 0.4 0.0-2.0 % Neutrophils # (Auto) 15.4 H 1.6-8.6 10 ^3/uL Lymphocytes # (Auto) 1.7 0.4-5.4 10 ^3/uL Monocytes # (Auto) 1.4 H 0-1.3 10 ^3/uL Eosinophils # (Auto) 0 0-0.8 10 ^3/uL Basophils # (Auto) 0.1 0-0.2 10 ^3/uL Nucleated Red Blood Cells 0.0 % Sodium Level 139 136-145 mmol/L Potassium Level 3.2 L 3.5-5.1 mmol/L Chloride Level 103 98-107 mmol/L Carbon Dioxide Level 25 20-31 mmol/L Anion Gap 11 5-15 Blood Urea Nitrogen 14 9-23 mg/dL Creatinine 2.30 H 0.550-1.02 mg/dL Glomerular Filtration Rate Calc 27 >90 mL/min BUN/Creatinine Ratio 6.1 L 10.0-20.0 Serum Glucose 119 H 74-106 mg/dL Calcium Level 9.1 8.7-10.4 mg/dL Assessment Assessment: CARLOS, secondary to sepsis ADPKD CKD II / IIIa (Baseline Cr: 1.2 - 1.3 mg/dl in 2022) Sepsis secondary to UTI Plan: Continue NS at 60 cc/h Continue IV antibiotics f/u blood cx and urine cx daily BMP Strict I&Os Needs follow up in Nephrology office post discharge for management of ADPKD. Plan discussed with: Patient AYESHA GARCIA MD Mar 27, 2025 13:20
[2025-03-27 17:57] VITALS: BP 135/82; PULSE 78; RESP 16; TEMP 98.1; O2SAT 98
--- NOTE | 2025-03-27 18:51 | DVHPN2 ---
Subjective I am assuming the care of the patient from tomorrow onwards. Patient's admitting diagnoses sepsis secondary to acute pyelonephritis. Patient is still complaining of left flank pain with a danger to left groin. Changes from previous H/P or p: No Changes Eyes: No Pain, No Vision change, No Conjunctivae inflammation, No Eyelid inflammation, No Other, No Redness ENT: No Ear pain, No Ear discharge, No Nose pain, No Nose discharge, No Nose congestion, No Mouth pain, No Mouth swelling, No Throat pain, No Throat swelling, No Other Cardiovascular: No Chest Pain, No Palpitations, No Orthopnea, No Paroxysmal Noc. Dyspnea, No Edema, No Lt Headedness, No Other Respiratory: No Cough, No Dry, No Shortness of breath, No SOB with excertion, No Wheezing, No Hemoptysis, No Pleuritic Pain, No Sputum, No Other Gastrointestinal: No Nausea, No Vomiting; Abdominal Pain; No Diarrhea; C onstipation; No Melena, No Hematochezia, No Other Genitourinary: No Dysuria, No Frequency, No Incontinence, No Hematuria, No Retention, No Other Musculoskeletal: No other, No neck pain, No shoulder pain, No arm pain, No back pain, No hand pain, No leg pain, No foot pain Skin: No Rash, No Lesions, No Jaundice, No Bruising, No Other Objective Vitals Vital Signs Date Time Temp Pulse Resp B/P (MAP) Pulse Ox O2 Delivery O2 Flow Rate FiO2 03/27/25 17:57 98.1 78 16 135/82 (99) 98 98.1 03/27/25 08:08 Room Air* 0 21 Exam HEENT pupils are reactive Neck is supple CVS S1-S2 regular rate and rhythm Respiratory a little clear GI positive bowel sounds soft and nondistended positive left CVA tenderness Extremity no edema LOCAL ANNOUNCER no motor deficit Medications Current Medications Medications Dose Ordered Sig/Clarissa Route Start Time Stop Time Status Last Admin Dose Admin Cefepime HCl 50 ml @ 12.5 mls/hr Q8HR IV 03/27/25 06:00 03/27/25 10:39 12.5 MLS/HR Famotidine 20 mg Q12HR IV 03/27/25 10:00 03/27/25 10:11 20 MG Vancomycin HCl 0 ml @ 0 mls/hr UD IV 03/27/25 03:15 Sodium Chloride 1,000 ml @ 60 mls/hr [id number] IV 03/27/25 03:15 Acetaminophen/ Hydrocodone Bitart 1 tab Q4HP PRN PO 03/27/25 03:15 03/27/25 05:22 1 TAB Ondansetron HCl 4 mg Q4HP PRN IV 03/27/25 03:15 03/27/25 14:40 4 MG Docusate Sodium 100 mg BIDPRN PRN PO 03/27/25 03:15 Acetaminophen 650 mg Q6HP PRN PO 03/27/25 03:15 Nitroglycerin 0.4 mg Q5MINP PRN SL 03/27/25 06:00 Morphine Sulfate 2 mg Q30M PRN IV 03/27/25 06:00 03/27/25 08:22 2 MG Morphine Sulfate 2 mg Q3HPRN PRN IV 03/27/25 16:45 03/27/25 17:48 2 MG Laboratory Results Laboratory Tests 03/26/25 23:33 Chemistry Test 03/26/25 23:33 Calcium Level 9.1 mg/dL (8.7-10.4) Coagulation Test 03/27/25 02:31 Prothrombin Time 11.9 sec (9.3-11.8) H Prothrombin Time INR 1.14 (0.9-1.15) Activated Partial Thromboplast Time 35.4 SEC (24.5-34.5) H Urinalysis Test 03/27/25 01:45 Urine Color Colorless (Yellow) Urine Clarity Turbid (Clear) H Urine pH 6.0 (5.0-9.0) Urine Specific [place] 1.014 (1.001-1.035) Urine Protein 2+ (Negative) H Urine Ketones Negative (Negative) Urine Blood 1+ /uL (Negative) H Urine Nitrite Negative (Negative) Urine Bilirubin Negative (Negative) Urine Urobilinogen Normal mg/dL (Negative) Urine Leukocyte Esterase 3+ /uL (Negative) Urine RBC 4 /hpf (0 - 4) Urine Microscopic WBC 162 /HPF (0-5) H Urine Squamous Epithelial Cells Few /hpf (<5) Urine Bacteria Few /hpf (None Seen) H Urine Glucose Normal mg/dL (Normal) Urine Test Negative (Negative) Assessment/Plan Assessment/Plan 39-year-old female with a known history of autosomal dominant polycystic kidney disease, CKD stage 3 who initially presented with the hospice of the left flank vein along with subjective fevers chills at home found to have 1. Sepsis secondary to acute pyelonephritis 2. Acute pyelonephritis 3. Acute kidney injury suspected secondary to vasomotor nephropathy and underlying sepsis with underlying CKD stage 3 4. Autosomal dominant polycystic kidney disease 5. Moderate obesity classIII -IV fluids, IV antibiotics, repeat labs Plan discussed with: Patient My Orders Orders - SAMANTA MANZANARES MD Procedure Category Date Status Time Morphine Sulfate PHA 03/27/25 In Process Injection 16:45 Date of Service: Mar 27, 2025 Billing Provider: SAMANTA MANZANARES MD Common Visit Codes: [id number] INP/OBS CARE(MOD) SAMANTA MANZANARES MD Mar 27, 2025 18:51
[2025-03-27 21:00] VITALS: BP 147/78; PULSE 79; RESP 18; TEMP 99.5; O2SAT 97
[2025-03-28] VITALS (7 sets, daily range): BP systolic 120–145; BP diastolic 74–100; PULSE 78–84; RESP 15–18; TEMP 98.2–98.8; O2SAT 93–98
--- NOTE | 2025-03-28 08:35 | DVHPN2 ---
Progress Note - Dictate Date Seen: Mar 28, 2025 Medical Necessity Reason Pt with a Central, PICC or Fol: No Subjective Patient seen and examined at bedside. Still complaining of diffuse abdominal pain. Diarrhea has resolved. Appetite continues to be poor. vital signs Vital Sign Date Time Temp Pulse Resp B/P (MAP) Pulse Ox O2 Delivery O2 Flow Rate FiO2 03/28/25 05:00 98.8 84 16 126/87 (100) 93 98.8 03/28/25 03:47 Room Air* 0 21 Total Intake and Output 03/27/25 03/27/25 03/28/25 15:00 23:00 07:00 Intake Total 300 ml 800 ml Balance 300 ml 800 ml medications Current Medications Medications Dose Ordered Sig/Clarissa Route Start Time Stop Time Status Last Admin Dose Admin Cefepime HCl 50 ml @ 12.5 mls/hr Q8HR IV 03/27/25 06:00 03/28/25 05:37 12.5 MLS/HR Famotidine 20 mg Q12HR IV 03/27/25 10:00 03/27/25 10:11 20 MG Vancomycin HCl 0 ml @ 0 mls/hr UD IV 03/27/25 03:15 Sodium Chloride 1,000 ml @ 60 mls/hr [id number] IV 03/27/25 03:15 03/27/25 20:35 60 MLS/HR Acetaminophen/ Hydrocodone Bitart 1 tab Q4HP PRN PO 03/27/25 03:15 03/27/25 05:22 1 TAB Ondansetron HCl 4 mg Q4HP PRN IV 03/27/25 03:15 03/28/25 01:41 4 MG Docusate Sodium 100 mg BIDPRN PRN PO 03/27/25 03:15 Acetaminophen 650 mg Q6HP PRN PO 03/27/25 03:15 Nitroglycerin 0.4 mg Q5MINP PRN SL 03/27/25 06:00 Morphine Sulfate 2 mg Q30M PRN IV 03/27/25 06:00 03/27/25 08:22 2 MG Morphine Sulfate 2 mg Q3HPRN PRN IV 03/27/25 16:45 03/28/25 01:45 2 MG objective Gen: NAD, AAOx3 HEENT: NC,AT Lungs: CTA b/l Cardiac: RRR, no murmur Abd: soft, no tenderness Ext: no edema Neuro: no focal deficits laboratory and microbiology Laboratory Tests 03/26/25 23:33 Test 03/26/25 23:33 Range/Units Serum Glucose 119 H 74-106 mg/dL Problem List CARLOS, secondary to sepsis ADPKD CKD IIIa (Baseline Cr: 1.2 - 1.3 mg/dl in 2022) Sepsis secondary to UTI Assessment/Plan Continue NS at 60 cc/h Continue IV antibiotics Urine culture with mixed verito daily BMP Strict I&Os Needs follow up in Nephrology office post discharge for management of ADPKD. Plan discussed with: Patient JB CHEEK MD Mar 28, 2025 08:35
[2025-03-28 09:43] LABS: Hematocrit 39.9 % (36.0-46.0); Hemoglobin 13.2 g/dL (12.2-16.2); Mean Corpuscular Hemoglobin 26.3 pg (28.0-32.0); Mean Corpuscular Volume 79.4 fL (80.0-100.0); Nucleated Red Blood Cells % 0.0 %
[2025-03-28 09:57] LABS: Albumin 4.4 g/dL (3.2-4.8); Alkaline Phosphatase 95 U/L (46-116); Anion Gap 10 (5-15); BUN/Creatinine Ratio 7.9 (10.0-20.0); Bilirubin, Total 0.4 mg/dL (0.2-1.0); Blood Urea Nitrogen 20 mg/dL (9-23); Calcium 9.0 mg/dL (8.7-10.4); Carbon Dioxide 24 mmol/L (20-31); Chloride 105 mmol/L (98-107); Glucose 94 mg/dL (74-106); Potassium 3.6 mmol/L (3.5-5.1); Sodium 139 mmol/L (136-145); Total Protein 7.6 g/dL (5.7-8.2)
[2025-03-28 10:01] LABS: Alanine Aminotransferase < 9 U/L (7-40)
--- NOTE | 2025-03-28 11:52 | DVHPN2 ---
Subjective Seen at bedside today, pain is continuing, although able to tolerate in tolerating p.o. Reviewed: Care Plan Changes from previous H/P or p: No Changes General: Per HPI Eyes: No Pain, No Vision change, No Conjunctivae inflammation, No Eyelid inflammation, No Other, No Redness ENT: No Ear pain, No Ear discharge, No Nose pain, No Nose discharge, No Nose congestion, No Mouth pain, No Mouth swelling, No Throat pain, No Throat swelling, No Other Cardiovascular: No Chest Pain, No Palpitations, No Orthopnea, No Paroxysmal Noc. Dyspnea, No Edema, No Lt Headedness, No Other Respiratory: No Cough, No Dry, No Shortness of breath, No SOB with excertion, No Wheezing, No Hemoptysis, No Pleuritic Pain, No Sputum, No Other Gastrointestinal: No Nausea, No Vomiting; Abdominal Pain; No Diarrhea; C onstipation; No Melena, No Hematochezia, No Other Genitourinary: No Dysuria, No Frequency, No Incontinence, No Hematuria, No Retention, No Other Musculoskeletal: No other, No neck pain, No shoulder pain, No arm pain, No back pain, No hand pain, No leg pain, No foot pain Skin: No Rash, No Lesions, No Jaundice, No Bruising, No Other Objective Vitals Vital Signs Date Time Temp Pulse Resp B/P (MAP) Pulse Ox O2 Delivery O2 Flow Rate FiO2 03/28/25 08:50 98.3 83 16 132/89 (103) 94 98.3 03/28/25 03:47 Room Air* 0 21 Intake/Output Intake and Output 03/28/25 07:00 Intake Total 1100 ml Balance 1100 ml Intake Oral 800 ml IV Total 300 ml # Voids 2 # Bowel Movements 1 Exam GEN: Healthy appearing, well-developed, NAD. HEENT: NC/AT; MMM. CV: RRR, no m/r/g. LUNGS: CTAB, no w/r/c. ABD: ND, NBS, no masses or organomegaly. Tender to palpation lower abdomen adnexal, no CVA tenderness EXT: skin Warm, well perfused. no rashes. No clubbing, cyanosis, or edema. NEURO: Ambulating with no limitations. No focal deficits. Medications Current Medications Medications Dose Ordered Sig/Clarissa Route Start Time Stop Time Status Last Admin Dose Admin Cefepime HCl 50 ml @ 12.5 mls/hr Q8HR IV 03/27/25 06:00 03/28/25 05:37 12.5 MLS/HR Famotidine 20 mg Q12HR IV 03/27/25 10:00 03/28/25 08:47 20 MG Vancomycin HCl 0 ml @ 0 mls/hr UD IV 03/27/25 03:15 Sodium Chloride 1,000 ml @ 60 mls/hr [id number] IV 03/27/25 03:15 03/27/25 20:35 60 MLS/HR Acetaminophen/ Hydrocodone Bitart 1 tab Q4HP PRN PO 03/27/25 03:15 03/27/25 05:22 1 TAB Ondansetron HCl 4 mg Q4HP PRN IV 03/27/25 03:15 03/28/25 08:46 4 MG Docusate Sodium 100 mg BIDPRN PRN PO 03/27/25 03:15 Acetaminophen 650 mg Q6HP PRN PO 03/27/25 03:15 Nitroglycerin 0.4 mg Q5MINP PRN SL 03/27/25 06:00 Morphine Sulfate 2 mg Q30M PRN IV 03/27/25 06:00 03/27/25 08:22 2 MG Morphine Sulfate 2 mg Q3HPRN PRN IV 03/27/25 16:45 03/28/25 08:45 2 MG Laboratory Results Laboratory Tests 03/28/25 09:11 Chemistry Test 03/28/25 09:11 Albumin 4.4 g/dL (3.2-4.8) Calcium Level 9.0 mg/dL (8.7-10.4) Total Protein 7.6 g/dL (5.7-8.2) LFT Test 03/28/25 09:11 Alanine Aminotransferase (ALT) < 9 U/L (7-40) Alkaline Phosphatase 95 U/L (46-116) Aspartate Amino Transferase (AST) 11 U/L (13-40) L Total Bilirubin 0.4 mg/dL (0.2-1.0) Urinalysis Test 03/27/25 01:45 Urine Color Colorless (Yellow) Urine Clarity Turbid (Clear) H Urine pH 6.0 (5.0-9.0) Urine Specific [place] 1.014 (1.001-1.035) Urine Protein 2+ (Negative) H Urine Ketones Negative (Negative) Urine Blood 1+ /uL (Negative) H Urine Nitrite Negative (Negative) Urine Bilirubin Negative (Negative) Urine Urobilinogen Normal mg/dL (Negative) Urine Leukocyte Esterase 3+ /uL (Negative) Urine RBC 4 /hpf (0 - 4) Urine Microscopic WBC 162 /HPF (0-5) H Urine Squamous Epithelial Cells Few /hpf (<5) Urine Bacteria Few /hpf (None Seen) H Urine Glucose Normal mg/dL (Normal) Urine Test Negative (Negative) Microbiology Microbiology Date/Time Source Procedure Growth Status 03/27/25 02:36 Blood Blood Culture - Preliminary NO GROWTH AFTER 24 HOURS OF INCUBATION. Resulted 03/27/25 01:45 Voided Urine Urine Culture - Preliminary Resulted Labs and/or images reviewed: Labs reviewed by me, Image(s) reviewed by me Assessment/Plan Assessment/Plan 39-year-old female with a known history of autosomal dominant polycystic kidney disease, CKD stage 3 who initially presented with the hospice of the left flank vein along with subjective fevers chills at home 03/28: Continues to have leukocytosis, sirs is resolving, blood pressure stable. CKD at stage 4. Yesterday vanc was stopped, continuing ceftriaxone. Pending micro cultures, there is prelim > 100 K Gram-positive verito. Pending sensitivity and speciation. Talking to patient it sounds like from history this could be gastroenteritis. She is on copper IUD last menses was? One week ago,. This could be gastroenteritis > pyelonephritis, could also be polycystic ovaries. We will try antibiotics treating pyelonephritis and add Flagyl to cover possible gastroenteritis. If not improving tomorrow we will get KUB and pelvic ultrasound to look at ovaries. Continue present management. Sepsis secondary to acute pyelonephritis Gastroenteritis, infectious etiology likely PCOS possible IUD related possible Tachycardia, resolved Tachypnea, resolved Acute pyelonephritis Acute kidney injury suspected secondary to vasomotor nephropathy and underlying sepsis with underlying CKD stage 3 Autosomal dominant polycystic kidney disease Moderate obesity classIII Plan: -IV fluids, IV antibiotics, repeat labs IV antibiotics ceftriaxone, Flagyl Prn repeat KUB Follow up urine culture Tele Full code Plan discussed with: Patient Date of Service: Mar 28, 2025 Billing Provider: JOSE ALEJANDRO RIVAS MD Common Visit Codes: [id number] INP/OBS CARE(HIGH) JOSE ALEJANDRO RIVAS MD Mar 28, 2025 11:52
[2025-03-28] MEDS: VANCOMYCIN 1.5GM/250ML 250 ML IV ONE (17:58)
[2025-03-29 01:30] VITALS: BP 125/55; PULSE 72; RESP 17; TEMP 98.4; O2SAT 96
[2025-03-29 05:30] VITALS: BP 132/89; PULSE 79; RESP 18; TEMP 97.6; O2SAT 95
[2025-03-29 06:47] LABS: Hematocrit 35.7 % (36.0-46.0); Hemoglobin 11.9 g/dL (12.2-16.2); Nucleated Red Blood Cells % 0.0 %
[2025-03-29 06:51] LABS: Mean Corpuscular Hemoglobin 26.9 pg (28.0-32.0); Mean Corpuscular Volume 80.5 fL (80.0-100.0)
[2025-03-29 06:59] LABS: Anion Gap 11 (5-15); Calcium 9.0 mg/dL (8.7-10.4); Carbon Dioxide 23 mmol/L (20-31); Chloride 107 mmol/L (98-107); Sodium 141 mmol/L (136-145)
[2025-03-29 07:05] LABS: BUN/Creatinine Ratio 7.7 (10.0-20.0); Blood Urea Nitrogen 18 mg/dL (9-23); Glucose 88 mg/dL (74-106)
[2025-03-29 07:21] LABS: Potassium 3.4 mmol/L (3.5-5.1)
[2025-03-29 08:00] VITALS: PULSE 76; PULSE 77; RESP 20; O2SAT 95
[2025-03-29 09:00] VITALS: BP 138/98; PULSE 77; RESP 20; TEMP 98.4; O2SAT 95
--- NOTE | 2025-03-29 09:38 | DVHPN2 ---
Progress Note - Dictate Date Seen: Mar 29, 2025 Medical Necessity Reason Pt with a Central, PICC or Fol: No Subjective Patient seen and examined at bedside. Still complaining of diffuse abdominal pain. Morphine helping with the pain. vital signs Vital Sign Date Time Temp Pulse Resp B/P (MAP) Pulse Ox O2 Delivery O2 Flow Rate FiO2 03/29/25 06:27 68 16 149/99 03/29/25 05:30 97.6 95 97.6 03/28/25 20:00 Room Air* 0 21 Total Intake and Output 03/28/25 03/28/25 03/29/25 15:00 23:00 07:00 Intake Total 875 ml 450 ml Balance 875 ml 450 ml medications Current Medications Medications Dose Ordered Sig/Clarissa Route Start Time Stop Time Status Last Admin Dose Admin Cefepime HCl 50 ml @ 12.5 mls/hr Q8HR IV 03/27/25 06:00 03/29/25 06:54 12.5 MLS/HR Famotidine 20 mg Q12HR IV 03/27/25 10:00 03/28/25 21:10 20 MG Vancomycin HCl 0 ml @ 0 mls/hr UD IV 03/27/25 03:15 Sodium Chloride 1,000 ml @ 60 mls/hr [id number] IV 03/27/25 03:15 03/29/25 05:42 60 MLS/HR Acetaminophen/ Hydrocodone Bitart 1 tab Q4HP PRN PO 03/27/25 03:15 03/27/25 05:22 1 TAB Ondansetron HCl 4 mg Q4HP PRN IV 03/27/25 03:15 03/29/25 05:56 4 MG Docusate Sodium 100 mg BIDPRN PRN PO 03/27/25 03:15 Acetaminophen 650 mg Q6HP PRN PO 03/27/25 03:15 Nitroglycerin 0.4 mg Q5MINP PRN SL 03/27/25 06:00 Morphine Sulfate 2 mg Q30M PRN IV 03/27/25 06:00 03/27/25 08:22 2 MG Morphine Sulfate 2 mg Q3HPRN PRN IV 03/27/25 16:45 03/29/25 05:57 2 MG Metronidazole 100 ml @ 100 mls/hr Q8HR IV 03/28/25 22:00 03/29/25 05:42 100 MLS/HR objective Gen: NAD, AAOx3 HEENT: NC,AT Lungs: CTA b/l Cardiac: RRR, no murmur Abd: soft, no tenderness Ext: no edema Neuro: no focal deficits laboratory and microbiology Laboratory Tests 03/29/25 05:52 Test 03/29/25 05:52 Range/Units Serum Glucose 88 74-106 mg/dL Problem List CARLOS superimposed on CKD stage IIIB [ as with the patient's GFR was around 40 mL/min 2 years ago.] ADPKD Sepsis secondary to UTI Assessment/Plan GFR stable. Current GFR could be a reflection of progression of her disease. Continue IV antibiotics Urine culture with mixed verito daily BMP Strict I&Os Needs follow up in Nephrology office post discharge for management of ADPKD. Plan discussed with: Patient JB CHEEK MD Mar 29, 2025 09:38
--- NOTE | 2025-03-29 10:59 | DVHDS2 ---
Discharge Summary Date of Admission Mar 27, 2025 at 05:57 Date of Discharge: Mar 29, 2025 Labs/Diagnostic Data: Laboratory Results Test 03/29/25 05:52 03/28/25 09:11 03/27/25 02:31 03/27/25 01:45 White Blood Count 7.8 10^3/uL (4.4-10.8) Red Blood Count 4.44 10^6/uL (4.0-5.20) Hemoglobin 11.9 g/dL (12.2-16.2) Hematocrit 35.7 % (36.0-46.0) Mean Corpuscular Volume 80.5 fL (80.0-100.0) Mean Corpuscular Hemoglobin 26.9 pg (28.0-32.0) Mean Corpuscular Hemoglobin Concent 33.4 g/dL (32.0-36.0) Red Cell Distribution Width 15.0 % (11.8-14.3) Platelet Count 257 10^3/uL (140-450) Mean Platelet Volume 9.1 fL (6.9-10.8) Neutrophils (%) (Auto) 73.4 % (37.0-80.0) Lymphocytes (%) (Auto) 18.7 % (10.0-50.0) Monocytes (%) (Auto) 6.3 % (0.0-12.0) Eosinophils (%) (Auto) 0.8 % (0.0-7.0) Basophils (%) (Auto) 0.8 % (0.0-2.0) Neutrophils # (Auto) 5.7 10 ^3/uL (1.6-8.6) Lymphocytes # (Auto) 1.5 10 ^3/uL (0.4-5.4) Monocytes # (Auto) 0.5 10 ^3/uL (0-1.3) Eosinophils # (Auto) 0.1 10 ^3/uL (0-0.8) Basophils # (Auto) 0.1 10 ^3/uL (0-0.2) Nucleated Red Blood Cells 0.0 % Sodium Level 141 mmol/L (136-145) Potassium Level 3.4 mmol/L (3.5-5.1) Chloride Level 107 mmol/L (98-107) Carbon Dioxide Level 23 mmol/L (20-31) Anion Gap 11 (5-15) Blood Urea Nitrogen 18 mg/dL (9-23) Creatinine 2.33 mg/dL (0.550-1.02) Glomerular Filtration Rate Calc 26 mL/min (>90) BUN/Creatinine Ratio 7.7 (10.0-20.0) Serum Glucose 88 mg/dL (74-106) Calcium Level 9.0 mg/dL (8.7-10.4) Random Vancomycin Level 17.9 ug/mL (5-10) Total Bilirubin 0.4 mg/dL (0.2-1.0) Aspartate Amino Transferase (AST) 11 U/L (13-40) Alanine Aminotransferase (ALT) < 9 U/L (7-40) Alkaline Phosphatase 95 U/L (46-116) Total Protein 7.6 g/dL (5.7-8.2) Albumin 4.4 g/dL (3.2-4.8) Prothrombin Time 11.9 sec (9.3-11.8) Prothrombin Time INR 1.14 (0.9-1.15) Activated Partial Thromboplast Time 35.4 SEC (24.5-34.5) Lactic Acid Level 0.9 mmol/L (0.4-2.0) Urine Color Colorless (Yellow) Urine Clarity Turbid (Clear) Urine pH 6.0 (5.0-9.0) Urine Specific [place] 1.014 (1.001-1.035) Urine Protein 2+ (Negative) Urine Ketones Negative (Negative) Urine Blood 1+ /uL (Negative) Urine Nitrite Negative (Negative) Urine Bilirubin Negative (Negative) Urine Urobilinogen Normal mg/dL (Negative) Urine Leukocyte Esterase 3+ /uL (Negative) Urine RBC 4 /hpf (0 - 4) Urine Microscopic WBC 162 /HPF (0-5) Urine Squamous Epithelial Cells Few /hpf (<5) Urine Bacteria Few /hpf (None Seen) Urine Glucose Normal mg/dL (Normal) Urine Test Negative (Negative) Other Laboratory Tests 03/29/25 05:52 Brief Hx & Hospital Course: 39-year-old female with a known history of autosomal dominant polycystic kidney disease, CKD stage 3 who initially presented with the hospice of the left flank vein along with subjective fevers chills at home 03/28: Continues to have leukocytosis, sirs is resolving, blood pressure stable. CKD at stage 4. Yesterday vanc was stopped, continuing ceftriaxone. Pending micro cultures, there is prelim > 100 K Gram-positive verito. Pending sensitivity and speciation. Talking to patient it sounds like from history this could be gastroenteritis. She is on copper IUD last menses was? One week ago,. This could be gastroenteritis > pyelonephritis, could also be polycystic ovaries. We will try antibiotics treating pyelonephritis and add Flagyl to cover possible gastroenteritis. If not improving tomorrow we will get KUB and pelvic ultrasound to look at ovaries. Continue present management. 03/29: Patient is feeling better. Nephrology wants to follow up with patient outpatient for ADPKD.. Urine culture coming with mixed verito likely dirty catch. Patient's story and symptoms coincide with gastroenteritis. We could have a mixed picture of pyelonephritis and gastroenteritis. We will have to cover both empirically, we will discharge patient with Augmentin 875 twice daily for 5 days, bowel regimen lactulose 10 daily with docusate 100 mg capsules twice daily. Vital signs stable stable for discharge as per plan below. Diagnosis: Sepsis secondary to acute pyelonephritis Gastroenteritis, infectious etiology likely PCOS possible IUD related possible Tachycardia, resolved Tachypnea, resolved Acute pyelonephritis Acute kidney injury suspected secondary to vasomotor nephropathy and underlying sepsis with underlying CKD stage 3 Autosomal dominant polycystic kidney disease Moderate obesity classIII Discharge sho: Nephrology wants to follow up with patient outpatient for ADPKD. Mixed picture of pyelonephritis and gastroenteritis, take Augmentin 875 twice daily for 5 days. bowel regimen lactulose 10 daily with docusate 100 mg capsules twice daily. Condition at Discharge: Fair Final Diagnosis/Problems List Sepsis secondary to acute pyelonephritis Gastroenteritis, infectious etiology likely PCOS possible IUD related possible Tachycardia, resolved Tachypnea, resolved Acute pyelonephritis Acute kidney injury suspected secondary to vasomotor nephropathy and underlying sepsis with underlying CKD stage 3 Autosomal dominant polycystic kidney disease Moderate obesity classIII Discharge Disposition: Home Discharge Instruct/Medications Scheduled Amoxicillin & Pot Clavulanate (Augmentin Tablet), 875 MG PO BID Docusate Sodium (Docusate Sodium), 100 MG PO BID Lactulose (Lactulose), 10 GM PO DAILY Ondansetron (Zofran), 1 TAB PO Q6HR Discharge Statement: "Patient was advised to return to the ER or call 911 if any headaches, dizziness, shortness of breath, chest pain, abdominal pain, bleeding, fevers, or worsening of medical condition. Patient was counseled about treatment plan, medications, possible side effects, patientverbalized understanding. All questions were answered to the best of my ability. This discharge took greater then 30 minutes in planning, reviewing documentation, counseling the patient, and discussing with other team members." ASSESSMENT ASSESSMENT Assessment Date of Service: Mar 29, 2025 Billing Provider: JOSE ALEJANDRO RIVAS MD Common Visit Codes: [id number] DISCH DAY >30min JOSE ALEJANDRO RIVAS MD Mar 29, 2025 10:59
[2025-03-29 13:00] VITALS: BP 150/102; PULSE 69; RESP 20; TEMP 98.6; O2SAT 96
[2025-03-29] MEDS ORDERED: VANCOMYCIN 1GM/250ML KIT 250 ML IV ONE (13:00)
[2025-03-29] MEDS ORDERED: LACT10SO3 PO (15:51)
[2025-03-29] MEDS ORDERED: DOCU-265 PO (15:51)
[2025-03-29] MEDS ORDERED: AUG875T PO (15:51)
[2025-03-29 17:15] VITALS: BP 145/96; PULSE 96; RESP 20; TEMP 98.6; O2SAT 97
== END 2025-03-29 17:56 | disposition home or self-care (01) | DRG 871 ==
LOC: ER 23:15 → OVERFLOW 03-27 05:57 → TELE-EAST 03-28 03:47
PROVIDERS: ADMIT Student in an Organized Health Care Education/Training Program; ATTEND Student in an Organized Health Care Education/Training Program
DX: A41.9 Sepsis, unspecified organism (principal); N17.0 Acute kidney failure with tubular necrosis; N10 Acute pyelonephritis; Q61.2 Polycystic kidney, adult type; A09 Infectious gastroenteritis and colitis, unspecified; Z68.41 Body mass index [BMI] 40.0-44.9, adult; E28.2 Polycystic ovarian syndrome; E66.813 Obesity, class 3; K59.00 Constipation, unspecified; N18.32 Chronic kidney disease, stage 3b; Z82.71 Family history of polycystic kidney; R65.20 Severe sepsis without septic shock; Z79.899 Other long term (current) drug therapy
CPT/HCPCS: 36415; 71045; 74176; 80048; 80053; 80202; 81001; 81025; 83605; 85025; 85610; 85730; 87040; 87086; 96372; 99291; G0378; J1885; J2405; J3490

== ENCOUNTER → 2025-04-13 | Outpatient (CLI) | payer BC ==
[~2025-04-13] MED LIST changes: +AUG875T PO; +DOCU-265 PO; +LACT10SO3 PO
== END | disposition home or self-care (01) ==
LOC: LAB 07:55
PROVIDERS: ATTEND Licensed Practical Nurse
DX: Z12.11 Encounter for screening for malignant neoplasm of colon (principal)
CPT/HCPCS: 82274

== ENCOUNTER → 2025-04-13 | Outpatient (CLI) | payer BC ==
[2025-04-13 07:42] LABS: Hematocrit 39.9 % (36.0-46.0); Hemoglobin 13.5 g/dL (12.2-16.2); Mean Corpuscular Hemoglobin 26.9 pg (28.0-32.0); Mean Corpuscular Volume 79.6 fL (80.0-100.0); Nucleated Red Blood Cells % 0.0 %
[2025-04-13 08:05] LABS: Alanine Aminotransferase 10 U/L (7-40); Albumin 4.0 g/dL (3.2-4.8); Alkaline Phosphatase 80 U/L (46-116); Anion Gap 10 (5-15); BUN/Creatinine Ratio 9.1 (10.0-20.0); Blood Urea Nitrogen 17 mg/dL (9-23); Calcium 8.9 mg/dL (8.7-10.4); Carbon Dioxide 24 mmol/L (20-31); Cholesterol 145 mg/dL (< 200); Glucose 94 mg/dL (74-106); Potassium 4.3 mmol/L (3.5-5.1); Sodium 143 mmol/L (136-145); Total Protein 7.3 g/dL (5.7-8.2); Triglycerides 113 mg/dL (< 150)
[2025-04-13 08:06] LABS: Bilirubin, Total 0.3 mg/dL (0.2-1.0); Chloride 109 mmol/L (98-107); HDL Cholesterol 33 mg/dL (40-59)
[2025-04-13 12:08] LABS: Hepatitis A Total Antibody Positive (Negative)
[2025-04-13 12:09] LABS: Hepatitis B Surface Antigen Negative (Negative); Hepatitis C Antibody Negative (Negative)
== END | disposition home or self-care (01) ==
LOC: LAB 07:23
PROVIDERS: ATTEND Licensed Practical Nurse
DX: E55.9 Vitamin D deficiency, unspecified (principal); Z13.29 Encounter for screening for other suspected endocrine disorder; Z13.1 Encounter for screening for diabetes mellitus; Z00.01 Encounter for general adult medical examination with abnormal findings
CPT/HCPCS: 36415; 80053; 80061; 82043; 82306; 82728; 83036; 84443; 85025; 86704; 86706; 86708; 86803; 87340